=== PATIENT | male | born 1990 | race Two or more races ===

== ENCOUNTER 2025-04-25 22:34 | Emergency (ER) | payer OTHER ==
[~2025-04-25] VITALS: Ht 182.9 cm; Wt 87.6 kg
--- NOTE | 2025-04-25 23:11 | ED.PDOC ---
GI ASSESSMENT HPI Comments 34 year old male presents to the ED with a chief complaint of abdominal pain onset today (04/25/25) around 21:00. Patient states he began experiencing a sharp, constant, pinpoint pain to mid suprapubic region as well as nausea/vomiting. Currently rates pain 10/10, states he is also experiencing chills. Last bowel movement was last night. Denies any PMhx as well as fall, injury, dysuria, hematuria, hematemesis, testicle pain, penile discharge, fever, chills. No other symptoms or modifying factors present at this time. Chief Complaint: Abdominal Pain Time Seen by MD: 22:54 Reviewed Notes: Medications, Allergies Allergies: Coded Allergies: NO KNOWN ALLERGIES (Unverified , 04/25/25) Home Meds Active Scripts Ondansetron Odt 4MG Tab (ZOFRAN PO) 4 Mg Tb, 4 MG PO TIDPRN PRN, #9 TAB ODT TAB-DISSOLVE IN MOUTH, THEN SWALLOW Prov:MURALI DIAZ MD 04/26/25 Ketorolac Tromethamine (Ketorolac Tromethamine) 10 Mg Tab, 1 TAB PO TID, #15 TAB Prov:MURALI DIAZ MD 04/26/25 Tamsulosin Hcl (Flomax) 0.4 Mg Cap, 1 CAP PO DAILY, #7 CAP 11 Refills Prov:MURALI DIAZ MD 04/26/25 Acetaminophen (Acetaminophen Er) 650 Mg Tab, 650 MG PO TIDPRN PRN, #15 TAB Prov:MURALI DIAZ MD 04/26/25 Information Source: Patient Mode of Arrival: Ambulatory Timing: Hours Duration: Since onset Prehospital treatment: None Quality: Sharp Severity: Moderate Recent: None Recent Hx of: None Pain Location: Suprapubic Modifying Factors: Nothing Associated sign and symptoms: Nausea, Vomiting, Abdominal Pain Vital Signs Vital Signs Date Time Temp Pulse Resp B/P (MAP) Pulse Ox O2 Delivery O2 Flow Rate FiO2 04/26/25 06:04 54 18 Room Air* 0 21 04/26/25 06:04 97.7 113/75 (88) 100 97.7 Physical Exam PHYSICAL EXAM: General: Awake, alert and oriented. No acute distress. Skin: Skin in warm, dry and intact. Appropriate color for ethnicity. HEENT: The head is normocephalic and atraumatic. Conjunctivae are clear without exudates or hemorrhage. Sclera is non-icteric. EOM are intact. No signs of nystagmus. Eyelids are normal in appearance without swelling or lesions. Oral mucosa is pink and moist Neck: The neck is supple with normal range of motion. No JVD. Cardiac: Heart rate and rhythm are normal. No murmurs, gallops, or rubs are auscultated. Respiratory: No signs of respiratory distress. Lung sounds are clear in all lobes bilaterally without rales, rhonchi, or wheezes. Abdominal: Abdomen is soft, suprapubic tenderness without distention, guarding or rigidity. Bowel sounds are present and normoactive in all four quadrants. Extremities: Upper and lower extremities are atraumatic in appearance without deformity or edema. Neurological: The patient is awake, alert and oriented to person, place, and time with normal speech. Speech is clear. There is no facial asymmetry. Psychiatric: Appropriate mood and affect. Good judgement and insight. Review of Systems: REVIEW OF SYSTEMS: As stated in HPI Past Medical History PAST MEDICAL HISTORY: Denies Surgical History: Denies all surgeries Family History Family History: Reviewed,noncontributory to illness, No family hx of Cancer, No family hx of DM, No family hx of Heart holden, No family hx of HTN, No family hx ofKidney holden, No family hx of Liver holden, No family hx of Lung holden, No family hx of Stroke Social History Smoker: Non-Smoker Alcohol: Denies ETOH Use Drugs: Denies Drug Use Lives In: Home Was a procedure done? Was a procedure done?: No GI differential Dx Differential Diagnosis: Other (Differential diagnoses considered include: Abdominal aortic aneurysm, ME, esophageal rupture, intestinal obstruction, mesenteric ischemia, perforated viscus or solid organ rupture, CHF with hepatomegaly, pneumonia, abscess, appendicitis, biliary disease, diverticulitis, gastritis, gastroenteritis, hepatitis, hernia, inflammatory bowel disease, pancreatitis, peptic ulcer disease, urinary tract infection, ureteral colic, constipation, GERD, irritable syndrome, abdominal wall pain, nonspecific abdominal pain, herpes zoster, nephrolithiasis. [ ]Also ruptured ectopic , ovarian torsion/cyst, tubo-ovarian abscess, PID, endometriosis, mitt leschmerz.) X-Ray, Labs, Meds, VS Vital Signs Date Time Temp Pulse Resp B/P (MAP) Pulse Ox O2 Delivery O2 Flow Rate FiO2 04/26/25 06:04 54 18 Room Air* 0 21 04/26/25 06:04 97.7 54 18 113/75 (88) 100 97.7 04/25/25 22:40 98.4 63 18 140/91 99 98.4 Lab Test 04/26/25 04:00 04/25/25 23:09 Range/Units Urine Color Yellow Yellow Urine Clarity Turbid H Clear Urine pH 5.5 5.0-9.0 Urine Specific [place] 1.028 1.001-1.035 Urine Protein Trace H Negative Urine Ketones Trace Negative Urine Blood 3+ H Negative /uL Urine Nitrite Negative Negative Urine Bilirubin Negative Negative Urine Urobilinogen Normal Negative mg/dL Urine Leukocyte Esterase Negative Negative /uL Urine RBC 227 0 - 3 /hpf Urine Microscopic WBC 7 H 0-3 /HPF Urine Squamous Epithelial Cells Few <5 /hpf Urine Bacteria None seen None Seen /hpf Urine Mucus Few None Seen Urine Glucose Normal Normal mg/dL White Blood Count 7.7 4.4-10.8 10^3/uL Red Blood Count 4.76 4.5-5.90 10^6/uL Hemoglobin 13.7 13.5-17.5 g/dL Hematocrit 41.1 41.0-53.0 % Mean Corpuscular Volume 86.2 80.0-100.0 fL Mean Corpuscular Hemoglobin 28.7 28.0-32.0 pg Mean Corpuscular Hemoglobin Concent 33.3 32.0-36.0 g/dL Red Cell Distribution Width 13.9 11.8-14.3 % Platelet Count 178 140-450 10^3/uL Mean Platelet Volume 9.1 6.9-10.8 fL Neutrophils (%) (Auto) 47.5 37.0-80.0 % Lymphocytes (%) (Auto) 41.6 10.0-50.0 % Monocytes (%) (Auto) 9.5 0.0-12.0 % Eosinophils (%) (Auto) 1.1 0.0-7.0 % Basophils (%) (Auto) 0.3 0.0-2.0 % Neutrophils # (Auto) 3.7 1.6-8.6 10 ^3/uL Lymphocytes # (Auto) 3.2 0.4-5.4 10 ^3/uL Monocytes # (Auto) 0.7 0-1.3 10 ^3/uL Eosinophils # (Auto) 0.1 0-0.8 10 ^3/uL Basophils # (Auto) 0 0-0.2 10 ^3/uL Nucleated Red Blood Cells 0.1 % Sodium Level 143 136-145 mmol/L Potassium Level 4.1 3.5-5.1 mmol/L Chloride Level 106 98-107 mmol/L Carbon Dioxide Level 28 20-31 mmol/L Anion Gap 9 5-15 Blood Urea Nitrogen 14 9-23 mg/dL Creatinine 0.79 0.700-1.30 mg/dL Glomerular Filtration Rate Calc 121 >90 mL/min BUN/Creatinine Ratio 17.7 10.0-20.0 Serum Glucose 108 H 74-106 mg/dL Calcium Level 9.4 8.7-10.4 mg/dL [place] [id number] Ph: [phone] DIAGNOSTIC IMAGING Diagnostic Imaging Report : [id number] Signed PATIENT: ALIX DESOUZAACCT: [id number] UNIT: [id number] : 1990 LOC: ER ROOM / BED: / AGE / SEX: 34 / M ADM STATUS: REG ER SERVICE 04 ORDERING PHYSICIAN: MURALI DIAZ MD PROCEDURE(s): ABPL - CT AB PEL WO CON-NO ORAL OR IV REASON: Severe lower abdominal pain ORDER NUMBER(s): [id number], ACCESSION NUMBER(s): [id number] Exam: CT CT AB PEL WO CON-NO ORAL OR IV History: Severe lower abdominal pain Comparison Study: None TECHNIQUE: Multidetector CT of the abdomen and pelvis was performed from lung bases to pubic symphysis. Imaging was performed without IV contrast. Axial, coronal, and sagittal multiplanar reformats were obtained from the axial data set by the technologist. RADIATION DOSE: CTDI vol 13.72 mGy. DLP 840.57 mGy.cm Findings: Limited evaluation of the solid organs in the absence of IV contrast. Lungs: The lung bases are clear. Liver: Unremarkable. Spleen: Unremarkable. Pancreas: Unremarkable. Gallbladder: Unremarkable. Adrenals: Unremarkable Kidneys: 2 mm calculus situated in the region of the distal left ureter near the ureterovesicular junction with mild upstream left hydroureteronephrosis. An additional 3 mm left renal calculus is seen. The right kidney is unremarkable. Pelvic Viscera: Unremarkable. Vasculature: Unremarkable. Retroperitoneum: Shotty retroperitoneal nodes. Bowel: No bowel obstruction. No CT evidence of appendicitis. Musculoskeletal: Multilevel Schmorl's nodes. Soft tissues: Unremarkable Impression: 1. 2 mm calculus situated in the region of the distal left ureter near the ureterovesicular junction with mild upstream left hydroureteronephrosis. 2. Additional findings as detailed. ATED BY: MERRICK SCHAEFER MD DICTATED DATE/TIME: 04/25/252336 SIGNED BY: MERRICK SCHAEFER MD SIGNED DATE/TIME: 04/25/252336 CC: v Time of 1ST Reevaluation: 23:24 Reevaluation 1ST: Unchanged Patient Education/Counseling: Diagnosis, Treatment, Need For Follow Up Family Education/Counseling: No Family Present SEPSIS Sepsis Screen Date sepsis recognized/suspect: Apr 25, 2025 Time Sepsis recognized/suspect: 2243 Recent Procedure: No On Antibiotic Therapy: No Respiratory Rate >20: No Heart Rate >90: No Temp<36 C (96.8 F) or >38.3 C: No SBP <90 or MAP <65 mmHG: No New Acute Mental Status Change: No Is the patient on CPAP, BIPAP,: No Physician Orders Ct Ab Pel Wo Con-No Oral Or Iv (04/25/25 23:05) Vital Signs Date Time Temp Pulse Resp B/P (MAP) Pulse Ox O2 Delivery O2 Flow Rate FiO2 04/26/25 06:04 54 18 Room Air* 0 21 04/26/25 06:04 97.7 54 18 113/75 (88) 100 97.7 04/25/25 22:40 98.4 63 18 140/91 99 98.4 Laboratory Tests Test 04/25/25 23:09 White Blood Count 7.7 10^3/uL (4.4-10.8) Departure 1 Departure Time of Disposition: 02:27 Impression: Primary Impression: Kidney stone Disposition: 01 HOME / SELF CARE / HOMELESS Condition: Stable Additional Instructions: ED DISCHARGE INSTRUCTIONS Instructions: Please read all instructions provided in this packet carefully. Although you have been discharged from the Emergency Department, this does not mean that you have a "clean bill of health". No definitive diagnosis for your symptoms has been made today. It is possible that you are in the process of developing a serious illness. This is why you must return to the ED without fail if any new or worsening symptoms (especially if your symptoms include chest pain, trouble breathing, abdominal pain, fever, headache, confusion, trouble seeing, or trouble walking) It is also very important that you see a primary care provider (PCP) within the next 3-5 days to follow up. If you are unable to get an appointment, return to the ED for re-evaluation. Kidney Stone: Care Instructions Table of Contents Overview How can you care for yourself at home? When should you call for help? Credits Overview A kidney stone in the ureter. Kidney stones are formed when salts, minerals, and other substances normally found in the urine clump together. They can be as small as grains of sand or, rarely, as large as golf balls. While the stone is traveling through the ureter, which is the tube that carries urine from the kidney to the bladder, you will probably feel pain. The pain may be mild or very severe. You may also have some blood in your urine. As soon as the stone reaches the bladder, any intense pain should go away. If a stone is too large to pass on its own, you may need a medical procedure to help you pass the stone. The doctor has checked you carefully, but problems can develop later. If you notice any problems or new symptoms, get medical treatment right away . Follow-up care is a zuleta part of your treatment and safety. Be sure to make and go to all appointments, and call your doctor if you are having problems. It's also a good idea to know your test results and keep a list of the medicines you take. How can you care for yourself at home? Drink plenty of fluids. If you have kidney, heart, or liver disease and have to limit fluids, talk with your doctor before you increase the amount of fluids you drink. Be safe with medicines. Read and follow all instructions on the label. If you are not taking a prescription pain medicine, ask your doctor if you can take an [id number] medicine. Nonsteroidal anti-inflammatory drugs (NSAIDs), such as ibuprofen (Advil, Motrin), may help with the pain. If the doctor gave you a prescription medicine for pain, take it as prescribed. Store your prescription pain medicines where no one else can get to them. When you are done using them, dispose of them quickly and safely. Your local pharmacy or hospital may have a drop-off site. Your doctor may ask you to strain your urine so that you can collect your kidney stone when it passes. You can use a kitchen strainer or a tea strainer to catch the stone. Store it in a plastic bag until you see your doctor again. Preventing future kidney stones Some changes in your diet may help prevent kidney stones. Depending on the cause of your stones, your doctor may recommend that you: Drink plenty of fluids. If you have kidney, heart, or liver disease and have to limit fluids, talk with your doctor before you increase the amount of fluids you drink. Try to drink mostly water. Limit grapefruit juice and sugar-sweetened beverages like soda. Do not take more than the recommended daily dose of vitamins C and D. Avoid antacids such as Maalox, Mylanta, or Tums. Limit the amount of salt (sodium) in your diet. Eat a variety of healthy foods. Include plenty of fruits and vegetables. You may need to limit animal protein for certain types of kidney stones. If you're worried about getting enough protein, try replacing animal protein sources with plant-based sources like dried peas and lentils. Limit foods that are high in a substance called oxalate, which can cause kidney stones. These foods include dark green vegetables, rhubarb, chocolate, wheat br an, nuts, cranberries, and beans. When should you call for help? Contact your doctor now or seek immediate medical care if: You cannot keep down fluids. Your pain gets worse. You have a fever or chills. You have new or worse pain in your back just below your rib cage (the flank area). You have new or more blood in your urine. You have new or worse pain or burning when you urinate. You have new or worse trouble urinating. Watch closely for changes in your health, and be sure to contact your doctor if: You do not get better as expected. Credits for Kidney Stone: Care Instructions Current as of: October 11, 2024 Author: [employer] Staff Clinical Review Board All [facility] [employer]™ [employer] [facility] education is reviewed by a team that includes physicians, nurses, advanced practitioners, registered dieticians, and other healthcare professionals. e-Prescriptions Ondansetron Odt 4MG Tab (ZOFRAN PO) 4 Mg Tb 4 MG PO TIDPRN PRN, #9 TAB ODT TAB-DISSOLVE IN MOUTH, THEN SWALLOW Prov: MURALI DIAZ MD 04/26/25 Ketorolac Tromethamine (Ketorolac Tromethamine) 10 Mg Tab 1 TAB PO TID, #15 TAB Prov: MURALI DIAZ MD 04/26/25 Tamsulosin Hcl (Flomax) 0.4 Mg Cap 1 CAP PO DAILY, #7 CAP 11 Refills Prov: MURALI DIAZ MD 04/26/25 Acetaminophen (Acetaminophen Er) 650 Mg Tab 650 MG PO TIDPRN PRN, #15 TAB Prov: MURALI DIAZ MD 04/26/25 Comments MDM: Patient well-appearing, nontoxic. Advised prompt follow-up with PCP, return to the ED with any new, worsening or concerning symptoms. Critical Care Note Critical Care Time?: No Stability Stability form required: No Heart Score Heart Score: Heart Score Response (Comments) Value History N/A 0 EKG N/A 0 Age N/A 0 Risk Factors N/A 0 Troponin N/A 0 Total 0 I personally scribed for MURALI DIAZ MD ([email or web address]) on 04/25/25 at 23:10. Electronically submitted by Angelika Minor ([email or web address]). I personally scribed for MURALI DIAZ MD ([email or web address]) on 04/26/25 at 01:10. Electronically submitted by Angelika Minor ([email or web address]). MURALI DIAZ MD Apr 25, 2025 23:10
[2025-04-25 23:20] LABS: Hematocrit 41.1 % (41.0-53.0); Hemoglobin 13.7 g/dL (13.5-17.5); Mean Corpuscular Hemoglobin 28.7 pg (28.0-32.0); Mean Corpuscular Volume 86.2 fL (80.0-100.0); Nucleated Red Blood Cells % 0.1 %
[2025-04-25 23:34] LABS: Chloride 106 mmol/L (98-107); Potassium 4.1 mmol/L (3.5-5.1); Sodium 143 mmol/L (136-145)
[2025-04-25 23:35] LABS: Anion Gap 9 (5-15); Carbon Dioxide 28 mmol/L (20-31)
[2025-04-25 23:36] LABS: Calcium 9.4 mg/dL (8.7-10.4)
--- NOTE | 2025-04-25 23:40 | DVH ---
Exam: CT CT AB PEL WO CON-NO ORAL OR IV History: Severe lower abdominal pain Comparison Study: None TECHNIQUE: Multidetector CT of the abdomen and pelvis was performed from lung bases to pubic symphysi s. Imaging was performed without IV contrast. Axial, coronal, and sagittal multiplanar reformats were obtained from the axial data set by the technologist. RADIATION DOSE: CTDI vol 13.72 mGy. DLP 840.57 mGy.cm Findings: Limited evaluation of the solid organs in the absence of IV contrast. Lungs: The lung bases are clear. Liver: Unremarkable. Spleen: Unremarkable. Pancreas: Unremarkable. Gallbladder: Unremarkable. Adrenals: Unremarkable Kidneys: 2 mm calculus situated in the region of the distal left ureter near the ureterovesicular minh ction with mild upstream left hydroureteronephrosis. An additional 3 mm left renal calculus is seen. The right kidney is unremarkable. Pelvic Viscera: Unremarkable. Vasculature: Unremarkable. Retroperitoneum: Shotty retroperitoneal nodes. Bowel: No bowel obstruction. No CT evidence of appendicitis. Musculoskeletal: Multilevel Schmorl's nodes. Soft tissues: Unremarkable Impression: 1. 2 mm calculus situated in the region of the distal left ureter near the ureterovesicular junction with mild upstream left hydroureteronephrosis. 2. Additional findings as detailed.
[2025-04-25 23:41] LABS: BUN/Creatinine Ratio 17.7 (10.0-20.0); Blood Urea Nitrogen 14 mg/dL (9-23)
[2025-04-26 00:04] LABS: Glucose 108 mg/dL (74-106)
[2025-04-26] MEDS: ACETAMINOPHEN 325 MG TAB PO ONE (00:07)
[2025-04-26] MEDS: ONDANSETRON ODT 4 MG TAB PO ONE (00:08)
[2025-04-26] MEDS: KETOROLAC TROMETH 30 MG/ML 1ML VIAL IM ONE (00:08)
[2025-04-26 04:39] LABS: Urine Protein, UAD TRACE (Negative)
[2025-04-26] MEDS ORDERED: KETO10TA PO (05:11)
[2025-04-26] MEDS ORDERED: ACET650T12 PO (05:11)
[2025-04-26] MEDS ORDERED: TAMS-35 PO (05:11)
[2025-04-26] MEDS ORDERED: ZOFR4T PO (05:11)
[2025-04-26 06:04] VITALS: BP 113/75; PULSE 54; RESP 18; TEMP 97.7; O2SAT 100
== END 2025-04-26 05:17 | disposition home or self-care (01) ==
LOC: ER 22:34
DX: N20.0 Calculus of kidney (principal)
CPT/HCPCS: 36415; 74176; 80048; 81001; 85025; 96372; 99285; J1885; Q0162